=== PATIENT | male | born 1980 | race Hispanic/Latino ===

== ENCOUNTER 2017-01-17 21:28 | Inpatient (IN) | payer OTHER ==
[2017-01-18] MEDS ORDERED: VANCOMYCIN/NS 1 GM/250 ML 1 GM/250 ML BAG IV ONE (01:32)
[2017-01-18] MEDS ORDERED: MORPHINE IV ONE (01:32)
--- NOTE | 2017-01-18 01:39 | Emergency Department Report ---
HPI - General Chief Complaint: Extremity Injury, Upper Time Seen by Provider: 01/18/17 01:19 - HPI HPI: This is a 36-year-old male who presents to the emergency department with a complaint of a 2 day history of right hand and wrist redness and swelling that is getting progressively worse. He denies any known trauma to the area. He has not taken anything for symptoms prior to presentation. He does not have a primary care doctor. No recent travel or sick contacts at home. He is right-hand dominant. He denies any fever, nausea, vomiting, shortness of breath, chest pain. He denies any illicit drugs and specifically any injectables. ED Past Medical Hx - Past Medical History Previous Medical History?: No - Surgical History Past Surgical History?: Yes Hx Cholecystectomy: Yes - Social History Smoking Status: Never Smoker - Medications Home Medications: Home Medications Medication Instructions Recorded Confirmed Last Taken Type Clindamycin [Clindamycin CAP] 600 mg PO BID #14 capsule 01/18/17 Unknown Rx HYDROcodone/APAP 5-325 [[place] 1 each PO Q6HR PRN #7 tablet 01/18/17 Unknown Rx 5/325] Sulfamethoxazole/Trimethoprim 1 each PO BID #14 tablet 01/18/17 Unknown Rx [Bactrim DS TAB] ED Review of Systems ROS: Stated complaint: HAND SWELLING Other details as noted in HPI Comment: All other systems reviewed and negative Constitutional: denies: chills, fever Eyes: denies: eye pain, eye discharge, vision change ENT: denies: ear pain, throat pain Respiratory: denies: cough, shortness of breath, wheezing Cardiovascular: denies: chest pain, palpitations Gastrointestinal: denies: abdominal pain, nausea, diarrhea Genitourinary: denies: urgency, dysuria Musculoskeletal: joint swelling, arthralgia. denies: back pain Skin: change in color. denies: pruritus Neurological: denies: headache, weakness, paresthesias Physical Exam - Physical Exam Vital Signs: Vital Signs 01/17/17 22:16 Temperature 98.4 F Pulse Rate 91 H Respiratory 18 Rate Blood Pressure 138/99 O2 Sat by Pulse 97 Oximetry Physical Exam: GENERAL: The patient is well-developed well-nourished. HEENT: Normocephalic. Atraumatic. Extraocular motions are intact. Patient has moist mucous membranes. Pupils equal reactive to light bilaterally. NECK: Supple. Trachea is midline. CHEST/LUNGS: Clear to auscultation. There is no respiratory distress noted. HEART/CARDIOVASCULAR: Regular. There is no tachycardia. There is no gallop rub or murmur. ABDOMEN: Abdomen is soft, nontender. Patient has normal bowel sounds. There is no abdominal distention. SKIN: There is some nonpitting swelling to the dorsum of the hand. There is erythema to the dorsum of the hand and wrist. There is some lymphangitis to the volar portion of the wrist and distal forearm. NEURO: The patient is awake, alert, and oriented. The patient is cooperative. The patient has no focal neurologic deficits. The patient has normal speech. MUSCULOSKELETAL: Patient has tenderness to palpation to the entire hand, circumferential wrist and distal forearm where the patient appears to have some cellulitis and lymphangitis. Patient is able to display some extension of his fingers but there is some mild restriction secondary to some nonpitting swelling. Radial pulses +2 over 4 bilaterally. Cap refill less than 2 seconds. ED Course Vital Signs 01/17/17 22:16 Temperature 98.4 F Pulse Rate 91 H Respiratory 18 Rate Blood Pressure 138/99 O2 Sat by Pulse 97 Oximetry ED Medical Decision Making - Lab Data Result diagrams: 01/18/17 03:10 01/18/17 03:10 - Radiology Data Radiology results: report reviewed, image reviewed interpreted by me: X-ray of the right hand does not show any fracture, dislocation but does show some soft tissue swelling, worst in the dorsum. CT of the right upper extremity is positive for diffuse cellulitis but there is no fluid collections - Medical Decision Making 36-year-old male who is right-hand dominant presents with a few days of right hand and wrist swelling as well as diffuse pain in this region. Patient is able to extend the fingers and move the hand and this does not appear consistent with any flexor tenosynovitis. Patient is not diabetic. There is no fever. However the patient does have a leukocytosis, erythema, nonpitting swelling and some lymphangitis. Patient be admitted for IV antibiotics and further evaluation and has been accepted for admission by the hospitalist, Dr. Oliveros. - Differential Diagnosis cellulitis, abscess, tenosynovitis, lymphangitis Critical Care Time: No Critical care attestation.: If time is entered above; I have spent that time in minutes in the direct care of this critically ill patient, excluding procedure time. ED Disposition Clinical Impression: Right hand pain, Right wrist pain, Cellulitis of hand, right, Acute lymphangitis of right upper extremity Disposition: DISCHARGED TO HOME OR SELFCARE Is pt being admited?: Yes Condition: Stable Time of Disposition: 04:40
[2017-01-18] MEDS ORDERED: MORPHINE ONE (01:43)
[2017-01-18] MEDS ORDERED: DILAUDID IV ONE (03:05)
[2017-01-18 03:52] LABS: Basophils % (Auto) 0.2 % (0.0-1.8); Eosinophils % (Auto) 0.3 % (0.0-4.3); Hematocrit 40.2 % (35.5-45.6); Hemoglobin 14.1 gm/dl (11.8-15.2); Mean Corpuscular HGB Conc 35 % (32-34); Mean Corpuscular Hemoglobin 31 pg (28-32); Mean Corpuscular Volume 88 fl (84-94); Platelet Count 259 K/mm3 (140-440); Red Blood Count 4.56 M/mm3 (3.65-5.03); Red Cell Distribution Width 12.7 % (13.2-15.2); White Blood Count 16.9 K/mm3 (4.5-11.0)
[2017-01-18 04:11] LABS: BUN/Creatinine Ratio 12.22; Blood Urea Nitrogen 11 mg/dL (9-20); Carbon Dioxide 27 mmol/L (22-30); Glucose 139 mg/dL (75-100)
[2017-01-18 04:12] LABS: Anion Gap 18 mmol/L; Chloride 94.8 mmol/L (98-107); Potassium 3.4 mmol/L (3.6-5.0); Sodium 136 mmol/L (137-145)
[2017-01-18] MEDS ORDERED: DILAUDID ONE (04:16)
[2017-01-18] MEDS ORDERED: NACL ONE (04:45)
[2017-01-18] MEDS ORDERED: HEPARIN SUB-Q SCH (06:00)
--- NOTE | 2017-01-18 06:12 | XRay Report ---
FINAL REPORT PROCEDURE: CT UPPER EXTREM RT W CON TECHNIQUE: Computerized axial tomography of the RIGHT hand was performed after the IV injection of iodinated nonionic contrast. HISTORY: Cellulitis vs abscess rt hand COMPARISON: No prior studies are available for comparison. FINDINGS: Bony structures including marrow spaces: Normal. Neurovascular structures: Normal. Soft tissues: Mild diffuse soft tissue swelling over the hand is noted on this study. No formed fluid collection. No evidence of abscess. Findings most consistent with cellulitis pattern. Joint space: Normal. Abnormal enhancement: None. IMPRESSION: Diffuse soft tissue swelling over the hand with no evidence of a formed fluid collection or abscess. The findings are most consistent with a diffuse cellulitis. The osseous structures appear intact without fracture.
[2017-01-18] MEDS ORDERED: MILK OF MAGNESIA PO PRN (06:47)
[2017-01-18] MEDS ORDERED: DULCOLAX PR PRN (06:47)
[2017-01-18] MEDS ORDERED: ZOFRAN IV PRN (06:47)
[2017-01-18] MEDS ORDERED: TYLENOL PO PRN (06:47)
[2017-01-18] MEDS ORDERED: PERCOCET 5/325 PO PRN (06:49)
--- NOTE | 2017-01-18 06:53 | Event Note ---
Date: 01/18/17 See H/p in reports Rt Hand Cellulitis
[2017-01-18] MEDS ORDERED: D5NS 1,000 ML IV SCH (07:00)
[2017-01-18] MEDS ORDERED: VANCOMYCIN VIAL 1,000 MG in NACL 0.9% 250ML 250 ML IV SCH ×2 (07:00→14:00)
--- NOTE | 2017-01-18 07:18 | Admit Criteria Form ---
Admission Criteria Documentation: CELLULITIS Clinical Indications for Admission to Inpatient Care (Place 'X' for any and all applicable criteria): Admission is indicated for ANY ONE of the following(1)(2)(3)(4)(5): [ ]I. Limb-threatening infection [ ]II. High-risk comorbid condition as indicated by ANY ONE of the following: [ ]a) Uncontrolled diabetes (eg, HbA1c greater than 10% (0.1)) [ ]b) Cirrhosis [ ]c) Neutropenia [ ]d) Asplenia [ ]e) Immunosuppression [ ]f) Symptomatic heart failure [ ]III. Failure of outpatient therapy as indicated by ALL of the following: [ ]a) Progression or no improvement after adequate trial (minimum of 48 hours, with longer period for stable lower extremity infection) [ ]b) Adequate antibiotic regimen as indicated by use of ANY ONE of the following: [ ]i) First-generation cephalosporin (e.g., cephalexin) [ ]ii) Antistaphylococcal penicillin (e.g., dicloxacillin) [ ]iii) Penicillin-allergic patient regimen (clindamycin, extended-spectrum fluoroquinolone, or doxycycline) [ ]iv) Resistant organism (eg, methicillin-resistant Staphylococcus aureus) regimen (6) [ ]c) Outpatient intravenous therapy regimen is not appropriate due to ANY ONE of the following. (7)(8)(9)(10): [ ]i) It was tried and was not successful (eg, progression of infection). [ ]ii) It is not available or cannot be arranged in a clinically appropriate time frame (e.g., the next day). [ ]iii) Clinical presentation (eg, acuity of infection, rapidity of progression, confirmed or suspected bacteremia) is judged to require ALL of the following: [ ]1) Immediate initiation of intravenous therapy ( eg, cannot wait for next day) [ ]2) Intensity of patient monitoring and observation (eg, vital sign measurement, checks for infection progression) that cannot be provided at other than inpatient level of care [ ]IV. Mental status changes [X]V. Bacteremia [ ]. Hemodynamic instability [ ]VII. Suspected necrotizing soft tissue infection (e.g., gas in tissue)(11)( 12) [ ]VIII. Orbital infection (13)(14) [ ]IX. Associated surgical procedure (e.g., abscess drainage, debridement) not amenable to outpatient, emergency department, or observation care [ ]X. Cutaneous gangrene [ ]XI. High fever (temperature greater than 39.5 degrees C (103.1 degrees F) (oral)) not responsive to outpatient, emergency department, or observation care therapy []XIII. Inpatient admission required rather than observation care (Also use Cellulitis: Observation Care as appropriate) because of ANY ONE of the following : [ ]a) Periorbital or perineal infection that is severe or worsening []b) Severe pain requiring acute inpatient management [ ]c) IV fluid to replace significant ongoing (e.g., for over 24 hours) losses (greater than 3L/m2 per day) [ ]d) Compartment syndrome monitoring (17) [ ]e) Strict or protective (eg, laminar flow) isolation [ ]f) Urgent debridement or skin grafting [ ]g) Bone or joint debridement [ ]h) Immediate inpatient surgery [ ]i) Other condition, treatment or monitoring requiring inpatient admission Extended stay beyond goal length of stay may be needed for (1)(18): [ ]a) Necrotizing soft tissue infection or fasciitis [ ]b) Gram-negative infection [ ]c) Methicillin-resistant Staphylococcal aureus (MRSA) infection [ ]d) Peripheral venous insufficiency with cellulitis [ ]e) Extensive edema [ ]f) Sepsis or continued Hemodynamic instability [ ]g) Continued high fever or mental status change [ ]h) Bacteremia [ ]i) Active serious comorbid conditions ( eg, heart failure, renal insufficiency) The original [employer] content created by [employer] has been revised. The portions of the content which have been revised are identified through the use of italic text or in bold, and [facility] has neither reviewed nor approved the modified material. All other unmodified content is copyright [employer] Please see references footnoted in the original [employer] [facility] edition 2016 Admission Criteria Met: Yes
[2017-01-18] MEDS ORDERED: DILAUDID IV PRN (07:30)
[2017-01-18] MEDS ORDERED: K-DUR PO ONE (07:30)
--- NOTE | 2017-01-18 08:17 | History and Physical Report ---
CHIEF COMPLAINT: Right upper extremity and right hand pain and redness for 2 days. HISTORY OF PRESENT ILLNESS: A 36-year-old male with no significant past medical history, comes into the ER for 2 days history of right hand and right wrist redness and swelling and unable to flex the hand and flex the fingers. Pain is about 8 on a scale of 1-10. Had a small abrasion on the knuckles secondary to his work. It has become red from the right middle finger to the dorsum of the hand and wrist, and streaks of red lines along the right forearm present. No fever, no chills. No nausea, no vomiting. No drugs. No IV drugs. Pain is about 8 on a scale of 1-10. PAST MEDICAL HISTORY: None. PAST SURGICAL HISTORY: Cholecystectomy. SOCIAL HISTORY: He does not smoke. No alcohol, no recreational drugs. FAMILY HISTORY: No hypertension, no diabetes. REVIEW OF SYSTEMS: CONSTITUTIONAL: No fever, no chills, no weight loss, no weight gain. HEENT: No sore throat, no postnasal drip. CARDIOVASCULAR AND RESPIRATORY SYSTEM: No shortness of breath, no chest pain, no palpitations. GASTROINTESTINAL: No nausea, no vomiting, no diarrhea. MUSCULOSKELETAL: No joint pains. Pain in the right hand and right wrist present. CENTRAL NERVOUS SYSTEM: No syncope, no seizures. SKIN: Rash on the right hand, right wrist, and right middle finger present. Small abrasion on the right middle finger present. PHYSICAL EXAMINATION: GENERAL: Young male, cooperative during examination. VITAL SIGNS: Temperature 98.4, pulse is 91, respirations 18, blood pressure 138/99, and sats are 97%. HEENT: Unremarkable. Pupils equal and reactive. NECK: Supple, no lymphadenopathy, no thyromegaly. LUNGS: Clear to auscultation and percussion. Good air entry. CARDIOVASCULAR: S1, S2 heard. No gallop, no murmur, no rub. LUNGS: Clear to auscultation and percussion. Apical impulse. ABDOMEN: Soft and benign. No hepatosplenomegaly. No guarding, no rigidity. SKIN: Swelling of the dorsum of the hand present. Unable to flex at the wrist, hand, and the fingers. There was lymphangitis along the forearm present. CENTRAL NERVOUS SYSTEM: Alert and oriented x4, nonfocal exam. No focal deficits. MUSCULOSKELETAL: As mentioned tenderness to palpation on the right hand, circumferential wrist, and distal forearm. The patient appears to have some cellulitis and lymphangitis. The patient is able to extend his fingers, but unable to flex his fingers and flex the hand. LABORATORY DATA: Significant for white count of 16,900 and potassium of 3.4. X-ray of the right hand does not show any fracture or osteomyelitis, shows soft tissue swelling. ASSESSMENT AND PLAN: 1. Right hand cellulitis, probably staph or MRSA. The patient has a small abrasion. The patient was started on IV vancomycin 1 g q.12 and IV Levaquin. 2. Hypokalemia, supplemented. 3. Deep venous thrombosis prophylaxis, Lovenox 40 mg subcutaneous daily. JOB# [id number] JAGJIT/CLEMENTE
[2017-01-18 08:32] VITALS: BP 116/79
[2017-01-18] MEDS ORDERED: VANCOMYCIN PHARMACY TO DOSE IV SCH (09:00)
[2017-01-18] MEDS ORDERED: LEVAQUIN 750MG/150ML 750 MG/150 ML BAG IV SCH (10:00)
--- NOTE | 2017-01-18 10:20 | Discharge Summary ---
Providers - Providers Date of Admission: 01/18/17 04:40 Date of discharge: 01/18/17 Attending physician: REYNALDO JONES Primary care physician: INNA MELENDREZ MD Hospitalization Condition: Stable Hospital course: This is a 36 y/o male with no prior medical history presented with RUE cellulitis. He was admitted for hospital for IV abx coverage. But patient wanted to go home with oral antibiotics. He was evaluated and discharge home with oral antibiotics. His preliminary blood cx was negative. Discharge diagnosis: RUE cellulitis hypokalemia Disposition: DISCHARGED TO HOME OR SELFCARE Time spent for discharge: 32 minutes Core Measure Documentation - Palliative Care Palliative Care/ Comfort Measures: Not Applicable - Core Measures Any of the following diagnoses?: none Exam - Constitutional Vitals: Temp Pulse Resp BP Pulse Ox 98.4 F 74 16 116/79 99 01/17/17 22:16 01/18/17 08:31 01/18/17 08:31 01/18/17 08:31 01/18/17 08:31 General appearance: Present: no acute distress - EENT Eyes: Present: EOM intact ENT: clear oral mucosa, dentition normal - Neck Neck: Present: supple, normal ROM - Respiratory Respiratory effort: normal Respiratory: bilateral: CTA - Cardiovascular Rhythm: regular - Extremities Extremities: No edema, Full ROM Extremity abnormal: other (right UE erythrema upto elbow with warmth and mild tenderness) Peripheral Pulses: within normal limits - Abdominal General gastrointestinal: Present: soft, non-distended, normal bowel sounds - Integumentary Integumentary: Present: warm, dry - Musculoskeletal Musculoskeletal: other - Psychiatric Psychiatric: appropriate mood/affect - Neurologic Neurologic: no focal deficits Plan Activity: advance as tolerated Weight Bearing Status: Weight Bear as Tolerated Diet: regular Wound: keep clean and dry Follow up with: PRIMARY CARE, [Primary Care Provider] - 3-5 Days Prescriptions: Clindamycin [Clindamycin CAP] 600 mg PO BID #14 capsule HYDROcodone/APAP 5-325 [[place] 5/325] 1 each PO Q6HR PRN #7 tablet PRN Reason: Pain Sulfamethoxazole/Trimethoprim [Bactrim DS TAB] 1 each PO BID #14 tablet
[2017-01-18] MEDS ORDERED: VANCOMYCIN/NS 1 GM/250 ML 1 GM/250 ML BAG IV SCH (14:00)
== END 2017-01-18 11:46 | disposition home or self-care (01) | DRG 603 ==
LOC: NM 21:28 → 3A 01-18 04:40
PROVIDERS: ADMIT Internal Medicine; ATTEND Internal Medicine
DX: L03.113 Cellulitis of right upper limb (principal); Z68.1 Body mass index [BMI] 19.9 or less, adult; L03.123 Acute lymphangitis of right upper limb; E87.6 Hypokalemia; Z88.8 Allergy status to other drugs, medicaments and biological substances; Z90.49 Acquired absence of other specified parts of digestive tract
CPT/HCPCS: 36415; 80048; 82140; 85025; 87040; J1170; J1644; J1956; J2270; J3370; J7050; Q9967